=== PATIENT | female | born 1945 | race Caucasian/White ===

== ENCOUNTER 2017-11-03 05:28 | Inpatient (IN) | payer OTHER, MEDICAID ==
[2017-11-03] MEDS: SOD CHLORIDE 0.9% 1,000 ML IV (05:30)
[2017-11-03] MEDS: CEFAZOLIN 1 GM/50 ML (PMX) 50 ML IVPB (05:30)
[2017-11-03 06:28] LABS: ADD MAN DIFF? NO
[2017-11-03 06:35] LABS: BASOPHILS % 0.4 % (0.0-2.0); EOSINOPHILS # 0.2 10^3/ul (0.0-0.5); EOSINOPHILS % 2.4 % (0.0-7.0); HEMATOCRIT 33.3 % (37.0-47.0); HEMOGLOBIN 10.9 g/dl (12.0-16.0); LYMPHOCYTES # 2.2 10^3/ul (0.8-2.9); LYMPHOCYTES % 23.4 % (15.0-51.0); MEAN CORPUSCULAR HEMOGLOBIN 29.9 pg (29.0-33.0); MEAN CORPUSCULAR HGB CONC 32.7 g/dl (32.0-37.0); MEAN CORPUSCULAR VOLUME 91.2 fl (82.0-101.0); MEAN PLATELET VOLUME 9.6 fl (7.4-10.4); MONOCYTE # 0.9 10^3/ul (0.3-0.9); MONOCYTES % 9.6 % (0.0-11.0); NEUTROPHIL # 5.9 10^3/ul (1.6-7.5); NEUTROPHILS % 62.9 % (39.0-77.0); PLATELET COUNT 283 10^3/UL (140-415); RED BLOOD COUNT 3.65 10^6/ul (4.20-5.40)
[2017-11-03 06:35] LABS: WHITE BLOOD COUNT 9.3 10^3/ul (4.8-10.8)
[2017-11-03] MEDS ORDERED: MIDAZOLAM 1 MG/ML 2 ML INJ (07:44)
[2017-11-03] MEDS ORDERED: morphine SULFATE/PF (10 MG/10 ML) INJ (07:45)
[2017-11-03] MEDS ORDERED: BUPIVACAINE 0.75%/DEXT (SPINAL) 2 ML INJ (07:51)
[2017-11-03] MEDS ORDERED: AMPICILLIN/SULB 3 GM/NS (PMX) 100 ML IVPB (08:14)
[2017-11-03] MEDS: POLYMYXIN/BACITRACIN 1L IRRIG (08:54)
[2017-11-03] MEDS: BUPIVACAINE 0.25%/EPI (SDV) 30 ML INJ (08:54)
[2017-11-03] MEDS ORDERED: GLUCAGON 1 MG INJ ×4 (09:34→09:40)
[2017-11-03] MEDS ORDERED: ETOMIDATE 20 MG INJ (15:18)
[2017-11-03] MEDS ORDERED: LIDOCAINE 2% (SDV) 5 ML INJ (15:18)
[2017-11-03] MEDS ORDERED: ROCURONIUM 50 MG INJ (15:18)
[2017-11-03] MEDS ORDERED: ONDANSETRON 4 MG INJ (15:19)
[2017-11-03] MEDS: METOCLOPRAMIDE 10 MG INJ IV ×2 (15:30→21:30)
[2017-11-03] MEDS ORDERED: ACETAMINOPHEN 1000MG/100ML IV 100 ML IVPB (15:30)
[2017-11-03] MEDS ORDERED: MEPERIDINE 25 MG INJ IV (16:00)
[2017-11-03] MEDS ORDERED: DEXTROSE 50% 50 ML SYRINGE IV ×2 (16:00)
[2017-11-03] MEDS ORDERED: GLUCOSE GEL 15 GRAM TUBE BUCCAL (16:00)
[2017-11-03] MEDS ORDERED: HYDROmorphONE 1 MG/5 ML IV SYRINGE IV ×2 (16:00)
[2017-11-03] MEDS ORDERED: FENTAnyl 50 MCG/ML VIAL IV (16:00)
[2017-11-03] MEDS ORDERED: GLUCOSE GEL 15 GRAM TUBE PO ×2 (16:00)
[2017-11-03] MEDS ORDERED: DIPHENHYDRAMINE 50 MG INJ IV (16:00)
[2017-11-03] MEDS ORDERED: ONDANSETRON 4 MG INJ IV (16:00)
[2017-11-03] MEDS ORDERED: NALOXONE (0.4 MG/ML) INJ IV (16:00)
[2017-11-03] MEDS ORDERED: GLUCAGON 1 MG INJ IM (16:00)
[2017-11-03] MEDS: LACTATED RINGER'S 1,000 ML IV (16:43)
[2017-11-03] MEDS: AMPICILLIN/SULB 3 GM/NS (PMX) 100 ML IVPB ×2 (16:44→20:51)
[2017-11-03] MEDS ORDERED: INSULIN ASPART [NOVOLOG] 3 ML PEN SC (18:00)
[2017-11-03] MEDS: FAMOTIDINE 20 MG INJ IV (20:52)
[2017-11-03] MEDS: INSULIN ASPART [NOVOLOG] 3 ML PEN SC (20:55)
[2017-11-03] MEDS: morphine 2 MG INJ IV (21:01)
[2017-11-03] MEDS: ONDANSETRON 4 MG INJ IV (22:09)
[2017-11-04] MEDS: INSULIN ASPART [NOVOLOG] 3 ML PEN SC ×6 (01:00→21:00)
[2017-11-04] MEDS: ACCU-CHEK XX (01:29)
[2017-11-04] MEDS: LACTATED RINGER'S 1,000 ML IV (01:49)
[2017-11-04] MEDS ORDERED: ACCU-CHEK XX (02:00)
[2017-11-04] MEDS: METOCLOPRAMIDE 10 MG INJ IV ×4 (03:22→21:57)
[2017-11-04] MEDS: AMPICILLIN/SULB 3 GM/NS (PMX) 100 ML IVPB ×2 (03:23→08:52)
[2017-11-04] MEDS: LEVOTHYROXINE 100 MCG VIAL IV (06:00)
[2017-11-04] MEDS: PANTOPRAZOLE 40 MG INJ IV (06:02)
[2017-11-04 06:10] LABS: WHITE BLOOD COUNT 15.4 10^3/ul (4.8-10.8)
[2017-11-04 06:10] LABS: HEMATOCRIT 32.1 % (37.0-47.0); HEMOGLOBIN 10.3 g/dl (12.0-16.0); MEAN CORPUSCULAR HEMOGLOBIN 29.9 pg (29.0-33.0); MEAN CORPUSCULAR HGB CONC 32.1 g/dl (32.0-37.0); MEAN CORPUSCULAR VOLUME 93.3 fl (82.0-101.0); MEAN PLATELET VOLUME 10.1 fl (7.4-10.4); PLATELET COUNT 272 10^3/UL (140-415); RED BLOOD COUNT 3.44 10^6/ul (4.20-5.40); RED CELL DISTRIBUTION WIDTH 14.4 % (11.5-14.5)
[2017-11-04] MEDS: SOD CHLORIDE 0.9% 1,000 ML IV ×5 (06:11→19:48)
[2017-11-04 06:21] LABS: ADD MAN DIFF? YES; POSITIVE DIFF @See below
[2017-11-04] MEDS: ACETAMINOPHEN 325 MG TAB PO ×2 (06:24→16:57)
[2017-11-04 06:33] LABS: LACTIC ACID 4.6 mmol/L (0.5-2.0)
[2017-11-04 08:12] LABS: BAND NEUTROPHILS #M 5.3 10^3/ul (0.0-0.6); BAND NEUTROPHILS % (M) 35 % (0-4); LYMPHOCYTES #M 0.9 10^3/ul (0.8-2.9); LYMPHOCYTES % (M) 6 % (15-51); MONOCYTE #M 0.4 10^3/ul (0.3-0.9); MONOCYTES % (M) 3 % (0-11); PLATELET ESTIMATE NORMAL; SEG NEUT #M 9.4 10^3/ul (1.6-7.5); SEGMENTED NEUTROPHILS (M) % 56 % (39-77); SMUDGE%M 2 % (0-0)
[2017-11-04] MEDS: FAMOTIDINE 20 MG INJ IV ×2 (09:17→21:53)
[2017-11-04] MEDS: PIPER-TAZO 3.375 GM IV (PMX) 100 ML IVPB ×3 (09:46→18:04)
[2017-11-04] MEDS: morphine 2 MG INJ IV (11:00)
[2017-11-04 11:17] LABS: ANION GAP 11 (8-16); BLOOD UREA NITROGEN 11 mg/dl (7-20); CALCIUM 7.3 mg/dl (8.4-10.2); CARBON DIOXIDE 24 mmol/L (21-31); CHLORIDE 111 mmol/L (97-110); CREATININE 0.92 mg/dl (0.44-1.00); GLUCOSE 142 mg/dl (70-220); POTASSIUM 4.5 mmol/L (3.5-5.1); SODIUM 141 mmol/L (135-144)
[2017-11-04 11:26] LABS: ANION GAP 14 (8-16); BLOOD UREA NITROGEN 11 mg/dl (7-20); CALCIUM 7.5 mg/dl (8.4-10.2); CARBON DIOXIDE 21 mmol/L (21-31); CHLORIDE 110 mmol/L (97-110); CREATININE 0.89 mg/dl (0.44-1.00); GLUCOSE 148 mg/dl (70-220); POTASSIUM 4.4 mmol/L (3.5-5.1); SODIUM 141 mmol/L (135-144)
[2017-11-04] MEDS ORDERED: morphine 2 MG INJ IV (11:30)
[2017-11-04 13:23] LABS: LACTIC ACID 1.8 mmol/L (0.5-2.0)
[2017-11-04] MEDS ORDERED: CEPASTAT LOZENGE MT (21:30)
[2017-11-04] MEDS: morphine LIQ (10 MG/5 ML) CUP PO (21:53)
[2017-11-04] MEDS: FLUTICASONE 0.05% 16 GM NAS SPRAY NASAL (22:56)
[2017-11-05] MEDS: INSULIN ASPART [NOVOLOG] 3 ML PEN SC ×4 (01:00→12:32)
[2017-11-05] MEDS: ACCU-CHEK XX (02:00)
[2017-11-05] MEDS: PIPER-TAZO 3.375 GM IV (PMX) 100 ML IVPB ×4 (02:10→17:49)
[2017-11-05] MEDS: METOCLOPRAMIDE 10 MG INJ IV ×2 (03:13→08:43)
[2017-11-05] MEDS: morphine LIQ (10 MG/5 ML) CUP PO (03:41)
[2017-11-05] MEDS: OXYCODONE/ACETAMINOPHEN (5/325) TAB PO ×2 (04:51→12:34)
[2017-11-05 05:49] LABS: ADD MAN DIFF? NO
[2017-11-05 05:53] LABS: HEMATOCRIT 25.6 % (37.0-47.0); HEMOGLOBIN 8.3 g/dl (12.0-16.0); MEAN CORPUSCULAR HEMOGLOBIN 30.2 pg (29.0-33.0); MEAN CORPUSCULAR HGB CONC 32.4 g/dl (32.0-37.0); MEAN CORPUSCULAR VOLUME 93.1 fl (82.0-101.0); MEAN PLATELET VOLUME 10.3 fl (7.4-10.4); PLATELET COUNT 214 10^3/UL (140-415); RED BLOOD COUNT 2.75 10^6/ul (4.20-5.40); RED CELL DISTRIBUTION WIDTH 14.8 % (11.5-14.5)
[2017-11-05 05:53] LABS: WHITE BLOOD COUNT 11.4 10^3/ul (4.8-10.8)
[2017-11-05 05:58] LABS: POSITIVE DIFF @See below
[2017-11-05 06:16] LABS: ALBUMIN 2.4 g/dl (3.3-4.9)
[2017-11-05 06:17] LABS: LACTIC ACID 0.9 mmol/L (0.5-2.0)
[2017-11-05 06:19] LABS: ANION GAP 12 (8-16); BLOOD UREA NITROGEN 8 mg/dl (7-20); CALCIUM 7.4 mg/dl (8.4-10.2); CARBON DIOXIDE 25 mmol/L (21-31); CHLORIDE 109 mmol/L (97-110); CREATININE 0.68 mg/dl (0.44-1.00); GLUCOSE 118 mg/dl (70-220); POTASSIUM 3.8 mmol/L (3.5-5.1); SODIUM 142 mmol/L (135-144)
[2017-11-05] MEDS: SOD CHLORIDE 0.9% 1,000 ML IV ×2 (06:27→17:49)
[2017-11-05] MEDS: LEVOTHYROXINE 100 MCG VIAL IV (06:35)
[2017-11-05] MEDS: PANTOPRAZOLE 40 MG INJ IV (06:36)
[2017-11-05] MEDS: FLUTICASONE 0.05% 16 GM NAS SPRAY NASAL ×2 (08:16→21:43)
[2017-11-05] MEDS: FAMOTIDINE 20 MG INJ IV ×2 (08:16→21:42)
[2017-11-05 08:52] LABS: BAND NEUTROPHILS #M 1.7 10^3/ul (0.0-0.6); BAND NEUTROPHILS % (M) 15 % (0-4); EOSINOPHILS % (M) 1 % (0-7); GIANT THROMBO% (M) 1 % (0-0); LYMPHOCYTES #M 0.5 10^3/ul (0.8-2.9); LYMPHOCYTES % (M) 5 % (15-51); MONOCYTE #M 0.2 10^3/ul (0.3-0.9); MONOCYTES % (M) 2 % (0-11); PLATELET ESTIMATE NORMAL; POLYCHROMASIA 1+ (0-0); SEGMENTED NEUTROPHILS (M) % 77 % (39-77); SMUDGE%M 5 % (0-0)
[2017-11-05 09:15] LABS: ADD UMIC YES; UR ASCORBIC ACID NEGATIVE (NEGATIVE); UR BILIRUBIN (Dip) NEGATIVE (NEGATIVE); UR BLOOD (Dip) 2+ mg/dL (NEGATIVE); UR CLARITY CLEAR (CLEAR); UR COLOR YELLOW (YELLOW); UR GLUCOSE (Dip) NEGATIVE (NEGATIVE); UR KETONES (Dip) 1+ mg/dL (NEGATIVE); UR LEUKOCYTE ESTERASE (Dip) NEGATIVE Leu/ul (NEGATIVE); UR NITRITE (Dip) NEGATIVE (NEGATIVE); UR RBC 16 /HPF (0-5); UR SPECIFIC GRAVITY (Dip) 1.018 (1.003-1.030); UR TOTAL PROTEIN (Dip) NEGATIVE (NEGATIVE); UR UROBILINOGEN (Dip) NEGATIVE (NEGATIVE); UR WBC 4 /HPF (0-5)
[2017-11-05] MEDS: Insulin NOVOLOG SS MILD Algorithm (SS with meals and bedtime) SC ×2 (17:45→21:00)
[2017-11-05] MEDS ORDERED: INSULIN ASPART [NOVOLOG] 3 ML PEN SC (18:00)
[2017-11-06] MEDS: PIPER-TAZO 3.375 GM IV (PMX) 100 ML IVPB ×4 (00:11→17:45)
[2017-11-06] MEDS: OXYCODONE/ACETAMINOPHEN (5/325) TAB PO (00:17)
[2017-11-06] MEDS: ACCU-CHEK XX (02:00)
[2017-11-06 06:15] LABS: ADD MAN DIFF? NO
[2017-11-06 06:22] LABS: BASOPHILS % 0.2 % (0.0-2.0); EOSINOPHILS # 0.2 10^3/ul (0.0-0.5); EOSINOPHILS % 1.7 % (0.0-7.0); HEMATOCRIT 22.9 % (37.0-47.0); HEMOGLOBIN 7.4 g/dl (12.0-16.0); LYMPHOCYTES # 1.7 10^3/ul (0.8-2.9); LYMPHOCYTES % 11.9 % (15.0-51.0); MEAN CORPUSCULAR HEMOGLOBIN 30.5 pg (29.0-33.0); MEAN CORPUSCULAR HGB CONC 32.3 g/dl (32.0-37.0); MEAN CORPUSCULAR VOLUME 94.2 fl (82.0-101.0); MONOCYTE # 0.9 10^3/ul (0.3-0.9); MONOCYTES % 6.5 % (0.0-11.0); PLATELET COUNT 199 10^3/UL (140-415); RED BLOOD COUNT 2.43 10^6/ul (4.20-5.40); RED CELL DISTRIBUTION WIDTH 14.5 % (11.5-14.5)
[2017-11-06 06:22] LABS: WHITE BLOOD COUNT 13.9 10^3/ul (4.8-10.8)
[2017-11-06] MEDS: PANTOPRAZOLE 40 MG INJ IV (06:25)
[2017-11-06] MEDS: LEVOTHYROXINE 100 MCG VIAL IV (06:25)
[2017-11-06] MEDS: SOD CHLORIDE 0.9% 1,000 ML IV ×2 (06:35→17:30)
[2017-11-06 06:49] LABS: ANION GAP 7 (8-16); BLOOD UREA NITROGEN 7 mg/dl (7-20); CALCIUM 7.3 mg/dl (8.4-10.2); CARBON DIOXIDE 25 mmol/L (21-31); CHLORIDE 113 mmol/L (97-110); CREATININE 0.68 mg/dl (0.44-1.00); GLUCOSE 112 mg/dl (70-220); POTASSIUM 3.4 mmol/L (3.5-5.1); SODIUM 142 mmol/L (135-144)
[2017-11-06] MEDS: Insulin NOVOLOG SS MILD Algorithm (SS with meals and bedtime) SC ×4 (08:00→20:53)
[2017-11-06] MEDS: FAMOTIDINE 20 MG INJ IV ×2 (08:37→20:47)
[2017-11-06] MEDS: FLUTICASONE 0.05% 16 GM NAS SPRAY NASAL ×2 (08:38→20:48)
[2017-11-06] MEDS: POTASSIUM CHLORIDE (SR) 20 MEQ TAB PO (09:02)
[2017-11-06] MEDS: ACETAMINOPHEN 325 MG TAB PO (14:59)
[2017-11-06] MEDS: LOSARTAN 25 MG TAB PO (15:52)
[2017-11-06 18:48] LABS: IMMEDIATE SPIN CROSSMATCH 1 1
[2017-11-07] MEDS: PIPER-TAZO 3.375 GM IV (PMX) 100 ML IVPB ×4 (01:17→17:07)
[2017-11-07] MEDS: OXYCODONE/ACETAMINOPHEN (5/325) TAB PO ×3 (01:33→14:54)
[2017-11-07] MEDS: ACCU-CHEK XX (02:00)
[2017-11-07] MEDS: PANTOPRAZOLE 40 MG INJ IV (06:27)
[2017-11-07] MEDS: LEVOTHYROXINE 50 MCG TAB NGT (06:27)
[2017-11-07] MEDS: Insulin NOVOLOG SS MILD Algorithm (SS with meals and bedtime) SC ×3 (07:55→17:06)
[2017-11-07] MEDS: LOSARTAN 25 MG TAB PO (08:46)
[2017-11-07] MEDS: FAMOTIDINE 20 MG INJ IV (08:46)
[2017-11-07] MEDS: FUROSEMIDE 20 MG INJ IV (08:46)
[2017-11-07] MEDS: FLUTICASONE 0.05% 16 GM NAS SPRAY NASAL (08:46)
[2017-11-07 11:24] LABS: ADD MAN DIFF? NO
[2017-11-07 11:30] LABS: BASOPHILS % 0.2 % (0.0-2.0); EOSINOPHILS # 0.2 10^3/ul (0.0-0.5); EOSINOPHILS % 1.8 % (0.0-7.0); HEMATOCRIT 27.7 % (37.0-47.0); HEMOGLOBIN 8.9 g/dl (12.0-16.0); LYMPHOCYTES # 1.4 10^3/ul (0.8-2.9); LYMPHOCYTES % 14.2 % (15.0-51.0); MEAN CORPUSCULAR HEMOGLOBIN 28.6 pg (29.0-33.0); MEAN CORPUSCULAR HGB CONC 32.1 g/dl (32.0-37.0); MEAN CORPUSCULAR VOLUME 89.1 fl (82.0-101.0); MEAN PLATELET VOLUME 9.7 fl (7.4-10.4); MONOCYTE # 0.8 10^3/ul (0.3-0.9); MONOCYTES % 8.5 % (0.0-11.0); NEUTROPHIL # 7.3 10^3/ul (1.6-7.5); NEUTROPHILS % 74.7 % (39.0-77.0); PLATELET COUNT 257 10^3/UL (140-415); RED BLOOD COUNT 3.11 10^6/ul (4.20-5.40); RED CELL DISTRIBUTION WIDTH 17.6 % (11.5-14.5)
[2017-11-07 11:30] LABS: WHITE BLOOD COUNT 9.8 10^3/ul (4.8-10.8)
[2017-11-07 11:44] LABS: ANION GAP 17 (8-16); BLOOD UREA NITROGEN 9 mg/dl (7-20); CALCIUM 7.5 mg/dl (8.4-10.2); CARBON DIOXIDE 26 mmol/L (21-31); CHLORIDE 100 mmol/L (97-110); CREATININE 0.56 mg/dl (0.44-1.00); GLUCOSE 124 mg/dl (70-220); POTASSIUM 3.3 mmol/L (3.5-5.1); SODIUM 140 mmol/L (135-144)
== END 2017-11-07 19:30 | DRG 329 ==
LOC: REC 05:28 → MS2 11-05 20:40
PROVIDERS: Surgery
PROC: 0DSM0ZZ Reposition Descending Colon, Open Approach (ICD-10-PCS; principal; 2017-11-03 07:30)
PROC: 0D1B0Z4 Bypass Ileum to Cutaneous, Open Approach (ICD-10-PCS; 2017-11-03 07:30)
PROC: 0DU Gastrointestinal System, Supplement (ICD-10-PCS; 2017-11-03 07:30)
PROC: 0WUF0JZ Supplement Abdominal Wall with Synthetic Substitute, Open Approach (ICD-10-PCS; 2017-11-03 07:30)
PROC: 0DNU0ZZ Release Omentum, Open Approach (ICD-10-PCS; 2017-11-03 07:30)
PROC: 0DJD8ZZ Inspection of Lower Intestinal Tract, Via Natural or Artificial Opening Endoscopic (ICD-10-PCS; 2017-11-03 07:30)
PROC: 30233N1 Transfusion of Nonautologous Red Blood Cells into Peripheral Vein, Percutaneous Approach (ICD-10-PCS; 2017-11-03 07:42)
DX: Z43.3 Encounter for attention to colostomy (principal); A41.9 Sepsis, unspecified organism; J18.9 Pneumonia, unspecified organism; K43.5 Parastomal hernia without obstruction or gangrene; K66.0 Peritoneal adhesions (postprocedural) (postinfection); K57.30 Diverticulosis of large intestine without perforation or abscess without bleeding; I10 Essential (primary) hypertension; E03.9 Hypothyroidism, unspecified; E11.9 Type 2 diabetes mellitus without complications; E66.9 Obesity, unspecified; Z68.32 Body mass index [BMI] 32.0-32.9, adult; Z79.84 Long term (current) use of oral hypoglycemic drugs
CPT/HCPCS: 36430; 71045; 71046; 80048; 81001; 82040; 82962; 83605; 85025; 86850; 86900; 86901; 86920; 87040; 87086; 88302; 88307; 93005; 97116; 97162; 97530

== ENCOUNTER 2018-06-22 05:22 | Inpatient (IN) | payer OTHER, MEDICAID ==
[2018-06-22] MEDS: SOD CHLORIDE 0.9% 1,000 ML IV (05:30)
[2018-06-22] MEDS ORDERED: SUCCINYLCHOLINE CHLORIDE 100 MG/5 ML SYG IV (07:00)
[2018-06-22] MEDS ORDERED: MIDAZOLAM 1 MG/ML 2 ML INJ (07:38)
[2018-06-22] MEDS ORDERED: ETOMIDATE 20 MG INJ (07:53)
[2018-06-22] MEDS ORDERED: ROCURONIUM 50 MG INJ (07:53)
[2018-06-22] MEDS ORDERED: LIDOCAINE 2% (SDV) 5 ML INJ (07:53)
[2018-06-22] MEDS ORDERED: FENTAnyl 50 MCG/ML VIAL (07:55)
[2018-06-22] MEDS ORDERED: ONDANSETRON 4 MG INJ IV ×2 (08:00→10:00)
[2018-06-22] MEDS ORDERED: ZOLPIDEM 5 MG TAB PO (08:00)
[2018-06-22] MEDS ORDERED: DIPHENHYDRAMINE 50 MG INJ IV (08:00)
[2018-06-22] MEDS ORDERED: HYDROmorphONE 0.5 MG/0.5 ML SYG IV (08:00)
[2018-06-22] MEDS ORDERED: NALOXONE (0.4 MG/ML) INJ IV (08:00)
[2018-06-22] MEDS ORDERED: metroNIDAZOLE 500 MG/NS (PMX) 100 ML IVPB (08:08)
[2018-06-22] MEDS ORDERED: CEFAZOLIN 1 GM INJ (08:08)
[2018-06-22] MEDS ORDERED: ONDANSETRON 4 MG INJ (08:15)
[2018-06-22] MEDS ORDERED: FAMOTIDINE 20 MG INJ (08:15)
[2018-06-22] MEDS ORDERED: BUPIVACAINE 0.5%/EPI (SDV) 30 ML INJ (09:47)
[2018-06-22] MEDS ORDERED: SUGAMMADEX SODIUM 200 MG/2 ML VIAL IV (09:50)
[2018-06-22] MEDS: ACETAMINOPHEN 1000MG/100ML IV 100 ML IVPB ×3 (10:00→22:57)
[2018-06-22] MEDS ORDERED: LABETALOL HCL 20MG INJ IV (10:30)
[2018-06-22] MEDS ORDERED: hydrALAzine 20 MG INJ IV (10:30)
[2018-06-22] MEDS ORDERED: HYDROmorphONE 1 MG/5 ML IV SYRINGE IV ×2 (10:30)
[2018-06-22] MEDS ORDERED: KETOROLAC 30 MG INJ IV (10:30)
[2018-06-22] MEDS: AMPICILLIN/SULB 3 GM/NS (PMX) 100 ML IVPB ×3 (10:50→22:00)
[2018-06-22] MEDS: INSULIN ASPART [NOVOLOG] 3 ML PEN SC ×3 (13:00→21:00)
[2018-06-22] MEDS: LACTATED RINGER'S 1,000 ML IV ×2 (15:04→19:53)
[2018-06-22] MEDS: LOSARTAN 50 MG TAB PO (17:35)
[2018-06-22] MEDS: ACETAMINOPHEN 325 MG TAB PO (17:44)
[2018-06-22] MEDS: FAMOTIDINE 20 MG INJ IV (21:14)
[2018-06-22] MEDS: DOCUSATE SODIUM 100 MG CAP PO (21:14)
[2018-06-22] MEDS: HYDROmorphONE 0.5 MG/0.5 ML SYG IV (21:26)
[2018-06-23] MEDS: INSULIN ASPART [NOVOLOG] 3 ML PEN SC ×6 (01:00→21:00)
[2018-06-23] MEDS: LACTATED RINGER'S 1,000 ML IV (01:21)
[2018-06-23] MEDS: AMPICILLIN/SULB 3 GM/NS (PMX) 100 ML IVPB (04:18)
[2018-06-23] MEDS: ACETAMINOPHEN 1000MG/100ML IV 100 ML IVPB (05:05)
[2018-06-23 06:06] LABS: ADD MAN DIFF? NO
[2018-06-23 06:08] LABS: WHITE BLOOD COUNT 9.2 10^3/ul (4.8-10.8)
[2018-06-23 06:08] LABS: BASOPHILS % 0.3 % (0.0-2.0); EOSINOPHILS # 0.1 10^3/ul (0.0-0.5); EOSINOPHILS % 0.8 % (0.0-7.0); HEMATOCRIT 29.9 % (37.0-47.0); HEMOGLOBIN 9.6 g/dl (12.0-16.0); LYMPHOCYTES # 1.8 10^3/ul (0.8-2.9); LYMPHOCYTES % 20.1 % (15.0-51.0); MEAN CORPUSCULAR HEMOGLOBIN 28.8 pg (29.0-33.0); MEAN CORPUSCULAR HGB CONC 32.1 g/dl (32.0-37.0); MEAN CORPUSCULAR VOLUME 89.8 fl (82.0-101.0); MEAN PLATELET VOLUME 9.9 fl (7.4-10.4); MONOCYTE # 0.8 10^3/ul (0.3-0.9); MONOCYTES % 8.8 % (0.0-11.0); NEUTROPHIL # 6.4 10^3/ul (1.6-7.5); NEUTROPHILS % 69.6 % (39.0-77.0); PLATELET COUNT 257 10^3/UL (140-415); RED BLOOD COUNT 3.33 10^6/ul (4.20-5.40); RED CELL DISTRIBUTION WIDTH 13.9 % (11.5-14.5)
[2018-06-23] MEDS: LEVOTHYROXINE 50 MCG TAB PO (06:11)
[2018-06-23 06:46] LABS: ANION GAP 1 (5-13); BLOOD UREA NITROGEN 9 mg/dl (7-20); CALCIUM 8.4 mg/dl (8.4-10.2); CARBON DIOXIDE 31 mmol/L (21-31); CHLORIDE 107 mmol/L (97-110); CREATININE 0.71 mg/dl (0.44-1.00); Estimated GFR > 60 mL/min (>60); GLUCOSE 109 mg/dl (70-220); POTASSIUM 3.4 mmol/L (3.5-5.1); SODIUM 139 mmol/L (135-144)
[2018-06-23] MEDS: FAMOTIDINE 20 MG INJ IV ×2 (08:34→21:05)
[2018-06-23] MEDS: DOCUSATE SODIUM 100 MG CAP PO ×2 (08:34→21:00)
[2018-06-23] MEDS: LOSARTAN 50 MG TAB PO (08:34)
[2018-06-23] MEDS ORDERED: PSEUDOEPHEDRINE 30 MG TAB PO (10:00)
[2018-06-23] MEDS: POTASSIUM CHLORIDE (SR) 20 MEQ TAB PO (10:43)
[2018-06-23] MEDS: ACETAMINOPHEN 325 MG TAB PO (10:44)
[2018-06-23] MEDS: SOD CHLORIDE 0.45% 1,000 ML IV (10:45)
[2018-06-23] MEDS: HYDROCODONE/APAP (5/325) TAB PO ×2 (16:03→22:31)
[2018-06-23] MEDS ORDERED: GLUCAGON 1 MG INJ IM (22:30)
[2018-06-23] MEDS ORDERED: GLUCOSE GEL 15 GRAM TUBE BUCCAL (22:30)
[2018-06-23] MEDS ORDERED: GLUCOSE GEL 15 GRAM TUBE PO ×2 (22:30)
[2018-06-23] MEDS ORDERED: DEXTROSE 50% 50 ML SYRINGE IV ×2 (22:30)
[2018-06-24] MEDS: SOD CHLORIDE 0.45% 1,000 ML IV ×2 (00:43→12:10)
[2018-06-24] MEDS: CEFAZOLIN 2 GM/50 ML (PMX) 50 ML IVPB (01:54)
[2018-06-24] MEDS: ACCU-CHEK XX (02:00)
[2018-06-24 05:56] LABS: ADD MAN DIFF? NO
[2018-06-24] MEDS: LEVOTHYROXINE 50 MCG TAB PO (05:57)
[2018-06-24 06:05] LABS: WHITE BLOOD COUNT 8.5 10^3/ul (4.8-10.8)
[2018-06-24 06:05] LABS: BASOPHILS % 0.2 % (0.0-2.0); EOSINOPHILS # 0.1 10^3/ul (0.0-0.5); EOSINOPHILS % 1.3 % (0.0-7.0); HEMATOCRIT 29.7 % (37.0-47.0); HEMOGLOBIN 9.6 g/dl (12.0-16.0); LYMPHOCYTES # 1.7 10^3/ul (0.8-2.9); LYMPHOCYTES % 20.4 % (15.0-51.0); MEAN CORPUSCULAR HEMOGLOBIN 28.9 pg (29.0-33.0); MEAN CORPUSCULAR HGB CONC 32.3 g/dl (32.0-37.0); MEAN CORPUSCULAR VOLUME 89.5 fl (82.0-101.0); MEAN PLATELET VOLUME 10.2 fl (7.4-10.4); MONOCYTE # 0.8 10^3/ul (0.3-0.9); MONOCYTES % 9.9 % (0.0-11.0); NEUTROPHIL # 5.7 10^3/ul (1.6-7.5); NEUTROPHILS % 67.7 % (39.0-77.0); PLATELET COUNT 253 10^3/UL (140-415); RED BLOOD COUNT 3.32 10^6/ul (4.20-5.40); RED CELL DISTRIBUTION WIDTH 13.6 % (11.5-14.5)
[2018-06-24 07:02] LABS: ANION GAP 7 (5-13); BLOOD UREA NITROGEN 6 mg/dl (7-20); CALCIUM 8.6 mg/dl (8.4-10.2); CARBON DIOXIDE 28 mmol/L (21-31); CHLORIDE 104 mmol/L (97-110); Estimated GFR > 60 mL/min (>60); GLUCOSE 105 mg/dl (70-220); SODIUM 139 mmol/L (135-144)
[2018-06-24 07:09] LABS: POTASSIUM 2.7 mmol/L (3.5-5.1)
[2018-06-24] MEDS: INSULIN ASPART [NOVOLOG] 3 ML PEN SC ×4 (08:28→20:24)
[2018-06-24] MEDS: FAMOTIDINE 20 MG INJ IV ×2 (08:29→20:20)
[2018-06-24] MEDS: ENOXAPARIN 40 MG/0.4 ML SYG SC (08:29)
[2018-06-24] MEDS: POTASSIUM CHLORIDE (SR) 20 MEQ TAB PO ×2 (08:30→12:53)
[2018-06-24] MEDS: LOSARTAN 50 MG TAB PO (08:30)
[2018-06-24] MEDS: HYDROCODONE/APAP (5/325) TAB PO ×2 (08:31→16:37)
[2018-06-24] MEDS: DOCUSATE SODIUM 100 MG CAP PO ×2 (08:31→20:21)
[2018-06-24] MEDS: ACETAMINOPHEN 325 MG TAB PO (20:29)
[2018-06-25] MEDS: HYDROCODONE/APAP (5/325) TAB PO ×3 (01:23→16:45)
[2018-06-25] MEDS: ACCU-CHEK XX (02:00)
[2018-06-25 05:49] LABS: ADD MAN DIFF? NO
[2018-06-25 05:52] LABS: WHITE BLOOD COUNT 7.9 10^3/ul (4.8-10.8)
[2018-06-25 05:52] LABS: BASOPHIL # 0.1 10^3/ul (0.0-0.1); BASOPHILS % 0.6 % (0.0-2.0); EOSINOPHILS # 0.3 10^3/ul (0.0-0.5); HEMATOCRIT 29.6 % (37.0-47.0); HEMOGLOBIN 9.4 g/dl (12.0-16.0); LYMPHOCYTES # 2.1 10^3/ul (0.8-2.9); LYMPHOCYTES % 25.9 % (15.0-51.0); MEAN CORPUSCULAR HEMOGLOBIN 28.9 pg (29.0-33.0); MEAN CORPUSCULAR HGB CONC 31.8 g/dl (32.0-37.0); MEAN CORPUSCULAR VOLUME 91.1 fl (82.0-101.0); MEAN PLATELET VOLUME 10.2 fl (7.4-10.4); MONOCYTE # 0.8 10^3/ul (0.3-0.9); MONOCYTES % 9.9 % (0.0-11.0); NEUTROPHIL # 4.7 10^3/ul (1.6-7.5); NEUTROPHILS % 59.2 % (39.0-77.0); PLATELET COUNT 256 10^3/UL (140-415); RED BLOOD COUNT 3.25 10^6/ul (4.20-5.40); RED CELL DISTRIBUTION WIDTH 13.6 % (11.5-14.5)
[2018-06-25 06:20] LABS: ANION GAP 7 (5-13); BLOOD UREA NITROGEN 10 mg/dl (7-20); CALCIUM 8.8 mg/dl (8.4-10.2); CARBON DIOXIDE 26 mmol/L (21-31); CHLORIDE 107 mmol/L (97-110); Estimated GFR > 60 mL/min (>60); GLUCOSE 92 mg/dl (70-220); POTASSIUM 3.8 mmol/L (3.5-5.1); SODIUM 140 mmol/L (135-144)
[2018-06-25] MEDS: LEVOTHYROXINE 50 MCG TAB PO (06:25)
[2018-06-25] MEDS: INSULIN ASPART [NOVOLOG] 3 ML PEN SC ×3 (07:00→17:30)
[2018-06-25] MEDS: LOSARTAN 50 MG TAB PO (08:36)
[2018-06-25] MEDS: DOCUSATE SODIUM 100 MG CAP PO (08:37)
[2018-06-25] MEDS: FAMOTIDINE 20 MG INJ IV (08:37)
[2018-06-25] MEDS: ENOXAPARIN 40 MG/0.4 ML SYG SC (08:44)
== END 2018-06-25 18:36 | DRG 331 ==
LOC: REC 05:22 → 2NE 11:55
PROVIDERS: Surgery
PROC: 0DQB0ZZ Repair Ileum, Open Approach (ICD-10-PCS; principal; 2018-06-22 07:30)
DX: Z43.2 Encounter for attention to ileostomy (principal); E03.9 Hypothyroidism, unspecified; I10 Essential (primary) hypertension; E11.9 Type 2 diabetes mellitus without complications
CPT/HCPCS: 80048; 82962; 85025; 87086; 88305; 97116; 97161; 97530